=== PATIENT | female | born 1970 | race Caucasian/White ===

== ENCOUNTER 2025-02-17 13:28 | Emergency (ER) | payer OTHER ==
[~2025-02-17] VITALS: Ht 160 cm; Wt 90.0 kg
[~2025-02-17 13:28] MED LIST: HYDR-4062 PO; IBUP-1554 PO; LISI-892 PO; ONDA-104 PO; SEMA1PEN3 SQ; SIMV-260 PO
[2025-02-17 13:34] VITALS: TEMP 98.4
[2025-02-17] MEDS ORDERED: BUSP5TAB20 PO (13:42)
[2025-02-17] MEDS ORDERED: METF-1211 PO (13:42)
[2025-02-17 14:00] LABS: BASOPHILS % (AUTO) 0.5 % (0.0-2.0); EOSINOPHILS % (AUTO) 0.4 % (1.0-6.0); HEMATOCRIT 44.4 % (36-46); HEMOGLOBIN 14.5 g/dL (12.0-16.0); LYMPHOCYTES # (AUTO) 1.7 K/uL (1.0-4.8); LYMPHOCYTES % (AUTO) 19.9 % (22.0-44.0); MEAN CORPUSCULAR HEMOGLOBIN 30.2 pg (26.0-34.0); MEAN CORPUSCULAR HGB CONC 32.7 G/dL (31.0-37.0); MEAN CORPUSCULAR VOLUME 92 fL (80-100); MONOCYTES # (AUTO) 0.5 K/uL (0.1-1.0); MONOCYTES % (AUTO) 5.5 % (2.0-9.0); NEUTROPHILS # (AUTO) 6.2 K/uL (1.8-7.7); NEUTROPHILS % (AUTO) 73.7 % (40.0-70.0); PLATELET COUNT (AUTO) 273 K/uL (150-450); RED BLOOD CELL COUNT(AUTO) 4.82 MIL/uL (4.00-5.20); WHITE BLOOD COUNT (AUTO) 8.4 K/uL (4.5-11.0)
[2025-02-17 14:10] LABS: ANION GAP 10 mmol/L (8-16); CALCIUM, TOTAL 9.5 mg/dL (8.8-10.5); CARBON DIOXIDE 27 mmol/L (22-29); CHLORIDE 103 mmol/L (98-107); CREATININE 0.63 mg/dL (0.60-1.30); GLOMERULAR FILTR. RATE CALC > 60 mL/min (>60); GLUCOSE,RANDOM 124 mg/dL (70-110); POTASSIUM 3.9 mmol/L (3.5-5.1); SODIUM SERUM 140 mmol/L (136-145); UREA NITROGEN, BLOOD 8 mg/dL (7-18)
[2025-02-17 14:19] LABS: LIPASE 27 U/L (16-77); TROPONIN I-HIGH SENSITIVITY 7 ng/L (<51)
[2025-02-17 14:33] LABS: BILIRUBIN,DIRECT 0.2 mg/dL (0.00-0.20); BILIRUBIN,TOTAL 0.5 mg/dL (0.1-1.0); TOTAL PROTEIN, SERUM 8.2 g/dL (6.4-8.2)
[2025-02-17] MEDS: SODIUM CHLORIDE 0.9% 1,000 ML IV ONE (14:33)
[2025-02-17] MEDS: METOCLOPRAMIDE HCL 5 MG/ML 2 ML VIAL IVP ONE (14:33)
[2025-02-17] MEDS: FAMOTIDINE 20 MG/2 ML VIAL IVP ONE (14:33)
[2025-02-17] MEDS: LORazepam 1 MG TABLET PO ONE (15:15)
[2025-02-17 15:41] LABS: TROPONIN I-HIGH SENSITIVITY 6 ng/L (<51)
[2025-02-17] MEDS ORDERED: ACETAMINOPHEN 650 MG/20.3 ML SOLUTION UDCUP PO ONE (17:45)
[2025-02-17] MEDS: ACETAMINOPHEN 325 MG TABLET PO ONE (18:03)
[2025-02-17] MEDS ORDERED: FAMO20 PO (18:26)
[2025-02-17 18:30] VITALS: BP 128/80; PULSE 97; RESP 20; O2SAT 98
== END 2025-02-17 18:45 | disposition home or self-care (01) ==
LOC: EMS 13:30
DX: K29.70 Gastritis, unspecified, without bleeding (principal); E11.9 Type 2 diabetes mellitus without complications; K76.0 Fatty (change of) liver, not elsewhere classified; Z79.84 Long term (current) use of oral hypoglycemic drugs; Z79.899 Other long term (current) drug therapy
CPT/HCPCS: 99285; 96374; 76705; 96361; 96375; 80048; 80076; 83690; 84484; 85025; 36415; 93005; J3490; J2765; J7030